=== PATIENT | male | born 1935 | race Hispanic/Latino ===

== ENCOUNTER 2018-01-04 21:08 | Emergency (ER) | payer OTHER ==
[2018-01-04 21:36] LABS: BASOPHILS % (AUTO) 0.8 % (0.0-5.0); HEMATOCRIT 41.2 % (42-54); LYMPHOCYTES % (AUTO) 32.8 % (21.0-51.0); MEAN CORPUSCULAR HGB CONC 33.9 g/dL (32.0-36.0); MEAN CORPUSCULAR VOLUME 91.5 fL (79-99); MONOCYTES % (AUTO) 8.5 % (3.0-13.0); NEUTROPHILS % (AUTO) 53.9 % (40.0-77.0); NUCLEATED RED BLOOD CELLS 0.1 % (0.0-0.19); PLATELET COUNT (AUTO) 235 K/uL (130-400); RED CELL DISTRIBUTION WIDTH 14.8 % (11.0-15.5); WHITE BLOOD COUNT (AUTO) 6.4 K/uL (4.8-10.8)
[2018-01-04 21:44] LABS: CREATININE 1.1 mg/dL (0.5-1.5); POTASSIUM 3.5 mmol/L (3.5-5.1)
[2018-01-04 21:57] LABS: INR 2.09 (0.85-1.15); PARTIAL THROMBOPLASTIN TIME 36.6 SEC (26.3-35.5); PROTHROMBIN TIME 21.6 SEC (9.6-11.6)
[2018-01-04 21:58] LABS: ALBUMIN 3.4 g/dL (3.5-5.0); BILIRUBIN,TOTAL 0.5 mg/dL (0.2-1.0); CREATINE KINASE MB 2.4 ng/mL (0.5-3.6); TOTAL PROTEIN, SERUM 7.1 g/dL (6.0-8.3)
[2018-01-04 22:10] LABS: B-TYPE NATRIURETIC PEPTIDE 126 pg/mL (0-100)
[2018-01-04] MEDS ORDERED: HYDRALAZINE HCL 20 MG/ML VIAL ONE (23:58)
== END 2018-01-05 00:25 | disposition home or self-care (01) ==
LOC: EDH 21:08
DX: R07.89 Other chest pain (principal); I48.91 Unspecified atrial fibrillation; E11.9 Type 2 diabetes mellitus without complications
CPT/HCPCS: 36415; 80053; 82553; 83880; 84484 ×2; 85025; 85610; 85730; 93005; 96374; 99285; J0360

== ENCOUNTER 2019-05-30 00:11 | Emergency (ER) | payer OTHER ==
[~2019-05-30 00:11] MED LIST: AMIO100T4 PO; ATOR20TA65 PO; CLOP75TA32 PO; ISOS20TA7 PO; LISI-617 PO; METF-444 PO; METO25TA6 PO; MV-M1TAB20 PO; RIVA20TA PO
[2019-05-30] MEDS ORDERED: LISINOPRIL 5 MG TABLET ONE (00:44)
[2019-05-30] MEDS ORDERED: AMLODIPINE BESYLATE 5 MG TAB ONE (00:44)
[2019-05-30] MEDS ORDERED: ASPIRIN 325 MG TABLET ONE (00:44)
[2019-05-30 00:46] LABS: HEMATOCRIT 34.6 % (42-54); MEAN CORPUSCULAR HEMOGLOBIN 27.5 pg (27.0-33.0); MEAN CORPUSCULAR HGB CONC 32.9 g/dL (32.0-36.0); MEAN CORPUSCULAR VOLUME 83.5 fL (79-99); MONOCYTES % (AUTO) 7.6 % (3.0-13.0); NEUTROPHILS % (AUTO) 49.4 % (40.0-77.0); PLATELET COUNT (AUTO) 201 K/uL (130-400); RED BLOOD CELL COUNT(AUTO) 4.14 MIL/uL (4.50-6.20); RED CELL DISTRIBUTION WIDTH 15.7 % (11.0-15.5); WHITE BLOOD COUNT (AUTO) 6.2 K/uL (4.8-10.8)
[2019-05-30 01:01] LABS: CREATININE 1.1 mg/dL (0.5-1.5); POTASSIUM 3.9 mmol/L (3.5-5.1)
[2019-05-30 01:05] LABS: ALBUMIN 3.4 g/dL (3.5-5.0); BILIRUBIN,TOTAL 0.8 mg/dL (0.2-1.0); TOTAL PROTEIN, SERUM 6.5 g/dL (6.0-8.3)
== END 2019-05-30 01:47 | disposition home or self-care (01) ==
LOC: EDH 00:11
DX: I10 Essential (primary) hypertension (principal); R07.89 Other chest pain; E11.9 Type 2 diabetes mellitus without complications; I48.91 Unspecified atrial fibrillation; I25.10 Atherosclerotic heart disease of native coronary artery without angina pectoris; Z90.49 Acquired absence of other specified parts of digestive tract
CPT/HCPCS: 36415; 71045; 80053; 84484; 85025; 93005

== ENCOUNTER → 2019-06-11 | Outpatient (CLI) | payer OTHER ==
[~2019-06-11] VITALS: Ht 182.9 cm; Wt 111.6 kg
[~2019-06-11] MED LIST changes: +REGADENOSON 0.4 MG/5 ML PF SYG IVP SCH
== END | disposition home or self-care (01) ==
LOC: SHCH 08:26
PROVIDERS: ATTEND Internal Medicine Cardiovascular Disease
DX: I25.10 Atherosclerotic heart disease of native coronary artery without angina pectoris (principal)
CPT/HCPCS: 78452; 93017; 96374; A9500 ×2; J2785

== ENCOUNTER → 2020-01-10 | Outpatient (CLI) | payer OTHER ==
[~2020-01-10] MED LIST changes: +IOHEXOL-350 50ML VIAL IV ONE; -REGADENOSON 0.4 MG/5 ML PF SYG IVP SCH
== END | disposition home or self-care (01) ==
LOC: RAH 07:31
PROVIDERS: ATTEND Internal Medicine Cardiovascular Disease
DX: K80.20 Calculus of gallbladder without cholecystitis without obstruction (principal); I70.0 Atherosclerosis of aorta; I73.9 Peripheral vascular disease, unspecified; I25.10 Atherosclerotic heart disease of native coronary artery without angina pectoris; N28.1 Cyst of kidney, acquired
CPT/HCPCS: 75635; Q9967

== ENCOUNTER 2021-08-16 18:55 | Observation (INO) | payer MEDICARE, OTHER ==
[~2021-08-16] VITALS: Ht 180.3 cm; Wt 113.4 kg
[~2021-08-16 18:55] MED LIST changes: -IOHEXOL-350 50ML VIAL IV ONE; -ISOS20TA7 PO; +ISOS20TA85 PO; -LISI-617 PO; +LISI5TAB21 PO
[2021-08-16 21:59] LABS: BASOPHILS % (AUTO) 0.8 % (0.0-5.0); EOSINOPHILS % (AUTO) 1.2 % (0.0-8.0); HEMATOCRIT 41.7 % (42-54); LYMPHOCYTES % (AUTO) 32.7 % (21.0-51.0); MEAN CORPUSCULAR HEMOGLOBIN 29.5 pg (27.0-33.0); MEAN CORPUSCULAR HGB CONC 32.9 g/dL (32.0-36.0); MEAN CORPUSCULAR VOLUME 89.9 fL (79-99); MONOCYTES % (AUTO) 8.1 % (3.0-13.0); NEUTROPHILS % (AUTO) 57.1 % (40.0-77.0); PLATELET COUNT (AUTO) 200 K/uL (130-400); RED BLOOD CELL COUNT(AUTO) 4.64 MIL/uL (4.50-6.20); RED CELL DISTRIBUTION WIDTH 13.9 % (11.0-15.5); WHITE BLOOD COUNT (AUTO) 7.7 K/uL (4.8-10.8)
[2021-08-16] MEDS ORDERED: NITROGLYCERIN 1GM OINT 1 INCH/1GM TD ONE (22:00)
[2021-08-16] MEDS ORDERED: ASPIRIN 81MG CHEW TAB PO ONE (22:00)
[2021-08-16 22:15] LABS: POTASSIUM 4.2 mmol/L (3.5-5.1)
[2021-08-16 22:36] LABS: B-TYPE NATRIURETIC PEPTIDE 101 pg/mL (0-100)
[2021-08-16] MEDS ORDERED: NITROGLYCERIN 0.4 MG SL TAB SL PRN (23:30)
[2021-08-16] MEDS ORDERED: ACETAMINOPHEN 325 MG TAB PO PRN ×2 (23:30)
[2021-08-16] MEDS ORDERED: ONDANSETRON 4MG INJ IV PRN (23:30)
[2021-08-16 23:44] LABS: INR 1.03 (0.85-1.15); PROTHROMBIN TIME 11.2 SEC (9.6-11.6)
[2021-08-16 23:46] LABS: PARTIAL THROMBOPLASTIN TIME 28.7 SEC (26.3-35.5)
[2021-08-16 23:48] LABS: HEMOGLOBIN A1C 6.5 % (4.0-6.0)
[2021-08-17] MEDS ORDERED: DEXTROSE 50%-WATER 50 ML DISP.SYRIN IV PRN
[2021-08-17] MEDS ORDERED: GLUCAGON 1MG KIT 1 MG ML IM PRN
[2021-08-17 00:23] LABS: APPEARANCE,URINE Clear (CLEAR); BILIRUBIN,URINE Negative (NEGATIVE); COLOR,URINE Yellow (YELLOW); GLUCOSE, URINE (UA) Negative (NEGATIVE); KETONES,URINE Negative (NEGATIVE); LEUKOCYTE ESTERASE ,URINE Trace (NEGATIVE); NITRATE,URINE Negative (NEGATIVE); OCCULT BLOOD,URINE Negative (NEGATIVE); PH,URINE 5.5 (5.0-8.0); PROTEIN,URINE Negative (NEGATIVE)
[2021-08-17 00:31] LABS: AMPHET/METH SCREEN,URINE NEGATIVE (NEGATIVE); BARBITURATE SCREEN, URINE NEGATIVE (NEGATIVE); BENZODIAZEPINES SCREEN,URINE NEGATIVE (NEGATIVE); CANNABINOID SCREEN,URINE NEGATIVE (NEGATIVE); COCAINE SCREEN,URINE NEGATIVE (NEGATIVE); OPIATE SCREEN,URINE NEGATIVE (NEGATIVE); PHENCYCLIDINE SCREEN,URINE NEGATIVE (NEGATIVE)
[2021-08-17 00:32] LABS: BACTERIA,URINE None Seen /HPF (None Seen); RBC,URINE None Seen /HPF (0-1); SQUAMOUS EPITHELIAL CELL,UR Rare /HPF (0-2); WBC,URINE 0-1 /HPF (0-1)
[2021-08-17 05:53] LABS: BASOPHILS % (AUTO) 0.7 % (0.0-5.0); EOSINOPHILS % (AUTO) 1.5 % (0.0-8.0); HEMATOCRIT 40.8 % (42-54); LYMPHOCYTES % (AUTO) 41.2 % (21.0-51.0); MEAN CORPUSCULAR HEMOGLOBIN 28.6 pg (27.0-33.0); MEAN CORPUSCULAR HGB CONC 32.4 g/dL (32.0-36.0); MEAN CORPUSCULAR VOLUME 88.5 fL (79-99); MONOCYTES % (AUTO) 8.9 % (3.0-13.0); NEUTROPHILS % (AUTO) 47.5 % (40.0-77.0); PLATELET COUNT (AUTO) 184 K/uL (130-400); RED BLOOD CELL COUNT(AUTO) 4.61 MIL/uL (4.50-6.20); RED CELL DISTRIBUTION WIDTH 13.8 % (11.0-15.5); WHITE BLOOD COUNT (AUTO) 5.9 K/uL (4.8-10.8)
[2021-08-17 06:16] LABS: ALBUMIN 3.5 g/dL (3.5-5.0); BILIRUBIN,TOTAL 0.8 mg/dL (0.2-1.0); CREATININE 0.9 mg/dL (0.5-1.5); MAGNESIUM 1.9 mg/dL (1.80-2.40); POTASSIUM 3.7 mmol/L (3.5-5.1); TOTAL PROTEIN, SERUM 6.7 g/dL (6.0-8.3)
[2021-08-17] MEDS ORDERED: INSULIN HUMULIN R 100 UNIT/ML 3ML SQ SCH (07:30)
[2021-08-17] MEDS ORDERED: APIX5TAB PO (08:08)
[2021-08-17] MEDS ORDERED: ISOS30TA92 PO (08:08)
[2021-08-17] MEDS ORDERED: AMLO-257 PO (08:08)
[2021-08-17] MEDS ORDERED: NITR0.4T50 SL (08:08)
[2021-08-17] MEDS ORDERED: VITAD50000 PO (08:08)
[2021-08-17] MEDS ORDERED: ENOXAPARIN SODIUM 40 MG/0.4 ML SYRINGE SQ SCH (09:00)
[2021-08-17] MEDS ORDERED: FAMOTIDINE 20MG TAB PO SCH (09:00)
[2021-08-17] MEDS ORDERED: ASPIRIN 81 MG EC TAB PO SCH (09:00)
[2021-08-17 10:15] VITALS: BP 166/81
== END 2021-08-17 09:59 | disposition left against medical advice (07) ==
LOC: EDH 19:03 → EDHIP 23:22
PROVIDERS: ADMIT Hospitalist; ATTEND Hospitalist
DX: R07.89 Other chest pain (principal); Z20.822 Contact with and (suspected) exposure to COVID-19; R00.1 Bradycardia, unspecified; I25.110 Atherosclerotic heart disease of native coronary artery with unstable angina pectoris; I48.0 Paroxysmal atrial fibrillation; E78.5 Hyperlipidemia, unspecified; I10 Essential (primary) hypertension; E11.9 Type 2 diabetes mellitus without complications; E66.9 Obesity, unspecified; Z68.34 Body mass index [BMI] 34.0-34.9, adult; Z79.899 Other long term (current) drug therapy; Z79.01 Long term (current) use of anticoagulants; Z95.5 Presence of coronary angioplasty implant and graft; Z53.29 Procedure and treatment not carried out because of patient's decision for other reasons
CPT/HCPCS: 36415 ×2; 71045; 80048; 80053; 80061; 80305; 81001; 82550 ×2; 83036; 83735 ×2; 83874 ×2; 83880; 84484 ×3; 85025 ×2; 85610; 85730; 87426; 93005 ×3; 99285; G0378 ×11

== ENCOUNTER → 2021-08-25 | Outpatient (CLI) | payer MEDICARE ==
[~2021-08-25] MED LIST changes: -AMIO100T4 PO; +AMLO-257 PO; +APIX5TAB PO; -ISOS20TA85 PO; +ISOS30TA92 PO; -METF-444 PO; -MV-M1TAB20 PO; +NITR0.4T50 SL; +REGADENOSON 0.4 MG/5 ML PF SYG IVP SCH; -RIVA20TA PO; +VITAD50000 PO
== END | disposition home or self-care (01) ==
LOC: SHCH 08:00
PROVIDERS: ATTEND Internal Medicine Cardiovascular Disease
DX: I25.119 Atherosclerotic heart disease of native coronary artery with unspecified angina pectoris (principal)
CPT/HCPCS: 78452; 93017; 96374; A9500 ×2; J2785

== ENCOUNTER → 2022-07-16 | Outpatient (CLI) | payer MEDICARE ==
[~2022-07-16] MED LIST changes: -REGADENOSON 0.4 MG/5 ML PF SYG IVP SCH
[2022-07-16 12:33] LABS: CREATININE 1.4 mg/dL (0.5-1.5); MAGNESIUM 2.1 mg/dL (1.80-2.40); POTASSIUM 4.2 mmol/L (3.5-5.1)
== END | disposition home or self-care (01) ==
LOC: LAB 10:29
PROVIDERS: ATTEND Physician Assistant
DX: I48.0 Paroxysmal atrial fibrillation (principal)
CPT/HCPCS: 36415; 80048; 83735; 83880

== ENCOUNTER → 2022-11-17 | Outpatient (CLI) | payer MEDICARE | END | disposition home or self-care (01) | LOC: SHCH 15:40 | PROVIDERS: ATTEND Internal Medicine Cardiovascular Disease | DX: I73.9 Peripheral vascular disease, unspecified (principal) | CPT/HCPCS: 93925 ==

== ENCOUNTER → 2022-12-10 | Outpatient (CLI) | payer MEDICARE ==
[~2022-12-10] MED LIST changes: +IOHEXOL 350 MG/ML 100ML INFUS..BTL IV ONE
== END | disposition home or self-care (01) ==
LOC: RAH 10:07 → EDSTATUS 11:00
PROVIDERS: ATTEND Internal Medicine Cardiovascular Disease
DX: I73.9 Peripheral vascular disease, unspecified (principal); I70.8 Atherosclerosis of other arteries
CPT/HCPCS: 75635; Q9967

== ENCOUNTER → 2023-07-19 | Outpatient (CLI) | payer MEDICARE ==
[~2023-07-19] MED LIST changes: -IOHEXOL 350 MG/ML 100ML INFUS..BTL IV ONE; +REGADENOSON 0.4 MG/5 ML PF SYG IVP ONE
== END | disposition home or self-care (01) ==
LOC: SHCH 07:37
PROVIDERS: ATTEND Internal Medicine Cardiovascular Disease
DX: I20.9 Angina pectoris, unspecified (principal); I49.1 Atrial premature depolarization
CPT/HCPCS: 78452; 96374; 93017; J2785; A9500 ×2

== ENCOUNTER 2023-08-17 10:05 | Day surgery (SDC) | payer MEDICARE ==
[2023-08-15 11:33] LABS: BASOPHILS # (AUTO) 0.05 K/uL (0.00-0.20); BASOPHILS % (AUTO) 0.9 % (0.0-5.0); EOSINOPHILS # (AUTO) 0.13 K/uL (0.00-0.70); EOSINOPHILS % (AUTO) 2.2 % (0.0-8.0); HEMATOCRIT 35.9 % (42-54); IMMATURE GRANULOCYTE ABSOLUTE 0.01 K/uL (0-1); LYMPHOCYTES # (AUTO) 2.5 K/uL (1.0-4.8); LYMPHOCYTES % (AUTO) 43.4 % (21.0-51.0); MEAN CORPUSCULAR HEMOGLOBIN 28.4 pg (27.0-33.0); MEAN CORPUSCULAR HGB CONC 32.3 g/dL (32.0-36.0); MEAN CORPUSCULAR VOLUME 87.8 fL (79-99); MONOCYTES # (AUTO) 0.5 K/uL (0.1-1.0); MONOCYTES % (AUTO) 8.8 % (3.0-13.0); NEUTROPHILS # (AUTO) 2.6 K/uL (1.8-7.7); NEUTROPHILS % (AUTO) 44.5 % (40.0-77.0); PLATELET COUNT (AUTO) 235 K/uL (130-400); RED BLOOD CELL COUNT(AUTO) 4.09 MIL/uL (4.50-6.20); RED CELL DISTRIBUTION WIDTH 15.2 % (11.0-15.5); WHITE BLOOD COUNT (AUTO) 5.8 K/uL (4.8-10.8)
[2023-08-15 11:40] VITALS: BP 129/58; PULSE 69; RESP 18
[2023-08-15 11:43] LABS: CREATININE 1.3 mg/dL (0.5-1.5); POTASSIUM 3.7 mmol/L (3.5-5.1)
[2023-08-15 11:48] LABS: INR 0.99 (0.85-1.15); PROTHROMBIN TIME 11.5 SEC (9.6-11.6)
[2023-08-15 11:49] LABS: PARTIAL THROMBOPLASTIN TIME 30.8 SEC (26.3-35.5)
[2023-08-15 12:02] LABS: B-TYPE NATRIURETIC PEPTIDE 312 pg/mL (0-100)
[~2023-08-17] VITALS: Ht 180.3 cm; Wt 100.7 kg
[2023-08-17] VITALS (9 sets, daily range): BP systolic 109–145; BP diastolic 57–68; PULSE 53–75; RESP 15–18
[~2023-08-17 10:05] MED LIST changes: +ATOR10 PO; +CHOL100046 PO; +CILO50TA2 PO; +DRON400T7 PO; +FIBER PO; +FURO20TA4 PO; +LOSA25TA41 PO; -REGADENOSON 0.4 MG/5 ML PF SYG IVP ONE
[2023-08-17] MEDS ORDERED: LIDOCAINE HCL 400MG/20ML VIAL ONE (10:52)
[2023-08-17] MEDS ORDERED: FENTANYL CITRATE PF 50 MCG/1 ML 2ML VIAL ONE (10:52)
[2023-08-17] MEDS ORDERED: VERAPAMIL HCL 2.5 MG/ML VIAL ONE (10:52)
[2023-08-17] MEDS ORDERED: IOHEXOL 350 MG/ML 100ML INFUS..BTL IV ONE (10:52)
[2023-08-17] MEDS ORDERED: HEPARIN 10,000 UNIT/10ML (1,000 UNIT/ML) VIAL ONE (10:52)
[2023-08-17] MEDS ORDERED: MIDAZOLAM HCL 1 MG/ML 2ML VIAL ONE (10:52)
[2023-08-17] MEDS ORDERED: 0.9%NACL 1000ML 1,000 ML IV ONE (11:17)
[2023-08-17] MEDS ORDERED: IOHEXOL-350 50ML VIAL IV ONE (12:27)
[2023-08-17] MEDS ORDERED: DEXTROSE 50%-WATER 50 ML DISP.SYRIN IV PRN (13:00)
[2023-08-17] MEDS ORDERED: 0.9%NACL 1000ML 1,000 ML IV SCH (13:00)
[2023-08-17] MEDS ORDERED: GLUCAGON 1MG KIT 1 MG ML IM PRN (13:00)
== END 2023-08-17 17:10 | disposition home or self-care (01) ==
LOC: DAH 10:05
PROVIDERS: ATTEND Student in an Organized Health Care Education/Training Program
DX: I25.119 Atherosclerotic heart disease of native coronary artery with unspecified angina pectoris (principal); I48.0 Paroxysmal atrial fibrillation; I10 Essential (primary) hypertension; I25.2 Old myocardial infarction; E78.5 Hyperlipidemia, unspecified; Z79.01 Long term (current) use of anticoagulants; Z79.899 Other long term (current) drug therapy; Z95.5 Presence of coronary angioplasty implant and graft
CPT/HCPCS: 80048; 83880; 85025; 85610; 85730; 36415; 71045; 93005; 93458; 82948 ×2; C1769; C1894; A4649; J3010; J3490 ×2; J7030; J1644 ×2; J2250; Q9967 ×2; A4215; A4222; A4663; A4216; A4606; Q9965; A4223 ×3; 96360; 96361; 99156; 99157

== ENCOUNTER → 2025-05-07 | Outpatient (CLI) | payer MEDICARE ==
[~2025-05-07] MED LIST changes: -ATOR20TA65 PO; -CLOP75TA32 PO; +IOHEXOL 350 MG/ML 100ML INFUS..BTL IV ONE; -LISI5TAB21 PO; -METO25TA6 PO; -VITAD50000 PO
--- NOTE | 2025-05-08 08:44 | CARDIOLOGY ---
RAD REPORT: [facility] CT ANGIO RADIOLOGY REPORT: CORONARY CT ANGIOGRAPHY DATE: May 08, 2025 QUALITY: Excellent CLINICAL HISTORY AND INDICATION: [ CAD ] TECHNIQUE: After obtaining a preliminary campus executive director image, contrast imaging performed on an [employer] [id number] scanner. A dedicated, limited window, coronary imaging protocol was used, with single breath-hold, retrospective ECG gating, and automated arrhythmia rejection. 100 cc of low osmolar contrast agent: Omnipaque 350 was delivered via a 18-gauge IV catheter in the right antecubital fossa, using a power injector and followed by 60 cc of normal saline bolus as a chaser. Collimated images were reformatted at 0.5 mm intervals, and sent to an offline independent workstation for interpretation, using 3D anatomic reconstructions: Curved multiplanar reconstructions, maximum intensity projections, and multiplanar imaging. No metoprolol was administered prior to scanning due to low baseline heart rate. 0.4 mg SL nitroglycerin was given. CORONARY ARTERY DESCRIPTIONS: The coronary arteries arise in normal position. Left main coronary artery: Normal caliber vessel that bifurcates into the LAD and LCx. The left main is calcified diffusely with <20% stenosis. Left anterior descending coronary artery: Normal caliber vessel and gives rise to diagonal and septal branches. There is calcified plaque in the proximal LAD with 20-30% stenosis. There is a drug eluting stent in the distal LAD, however, due to stent strut artifact, luminal in stent stenosis is not quantitated. There is a calcified plaque in the apical LAD with 90-99% stenosis (small vessel). Left circumflex coronary artery: Normal caliber, nondominant and gives rise to two OM branches. There is calcified plaque in the proximal LCx with 20-30% stenosis. Right coronary artery: Large, dominant vessel giving rise to the PL and PDA branches. There is calcified plaque in the proximal RCA with 20-30% stenosis. There is a patent drug eluting stent in the mid RCA. There is calcified plaque in the distal RCA with 20-30% stenosis. Thoracic Aorta: Normal diameter. Carmela Matthews MD Cardiovascular Disease [facility] CARMELA MATTHEWS MD May 08, 2025 08:44
== END | disposition home or self-care (01) ==
LOC: RAH 10:03
PROVIDERS: ATTEND Student in an Organized Health Care Education/Training Program
DX: I25.10 Atherosclerotic heart disease of native coronary artery without angina pectoris (principal); R07.9 Chest pain, unspecified
CPT/HCPCS: 75574; Q9967